=== PATIENT | female | born 1955 | race Caucasian/White ===

== ENCOUNTER 2025-04-06 16:42 | Emergency (ER) | payer MEDICARE, OTHER ==
[~2025-04-06 16:42] MED LIST: Iopamidol-370 76% 500 ML MDV (1 ML CHARGE) ONE
[2025-04-06] MEDS ORDERED: Acetaminophen 500 MG TAB ONE (17:08)
[2025-04-06] MEDS ORDERED: Ondansetron PF 4 MG/2 ML Vial ONE (17:29)
[2025-04-06 17:33] LABS: #Basophils 0.04 10x3/uL (0.0-0.2); #Eosinophils 0.09 10x3/uL (0.0-0.7); #Monocytes 0.67 10x3/uL (0.11-0.59); #Neutrophils 6.83 10x3/uL (1.40-6.50); %Basophils 0.5 % (0.0-1.0); %Eosinophils 1.0 % (0.0-10.0); %Lymphocytes 11.9 % (21.0-51.0); %Monocytes 7.6 % (0.0-10.0); %Neutrophils 77.4 % (42.0-75.0); Hematocrit 45.4 % (36.0-47.0); Hemoglobin 15.2 g/dL (12.0-16.0); Mean Corpuscular Hemoglobin 32.1 pg (27.0-31.0); Mean Corpuscular Volume 96.0 fL (78.0-98.0); Platelet Count 164 10x3/uL (130-400); Red Blood Cell (RBC) Count 4.73 mill/uL (4.20-5.40); White Blood Cell (WBC) Count 8.82 10x3/uL (4.8-10.8)
[2025-04-06 18:03] LABS: ALT (SGPT) 40 U/L (Less than 34); AST (SGOT) 50 U/L (11-34); Albumin 4.6 g/dL (3.1-4.5); Alkaline Phosphatase 117 U/L (40-110); Anion Gap 15 mmol/L (10-20); BUN (Urea Nitrogen) 19 mg/dL (9.8-20.1); Bilirubin, Total 1.0 mg/dL (0.3-1.2); Calc. Creatinine Clearance 0 mL/min (70-130); Calcium 10.2 mg/dL (7.8-10.44); Carbon Dioxide 25 mmol/L (23-31); Chloride 106 mmol/L (98-107); Globulin 2.8 g/dL (2.4-3.5); Glucose 148 mg/dL (83-110); Potassium 3.6 mmol/L (3.5-5.1); Sodium 142 mmol/L (136-145)
== END 2025-04-06 18:50 | disposition home or self-care (01) ==
LOC: ERS 16:42
DX: S39.012A Strain of muscle, fascia and tendon of lower back, initial encounter (principal); S16.1XXA Strain of muscle, fascia and tendon at neck level, initial encounter; I10 Essential (primary) hypertension; R79.89 Other specified abnormal findings of blood chemistry; E11.9 Type 2 diabetes mellitus without complications; Z55.6 Problems related to health literacy; V49.50XA Passenger injured in collision with unspecified motor vehicles in traffic accident, initial encounter
CPT/HCPCS: 70450; 71260; 72125; 74177; 80053; 85025; 93005; 96374; 99284; J2405; Q9967